=== PATIENT | female | born 1950 | race Caucasian/White ===

== ENCOUNTER 2017-07-20 15:33 | Inpatient (IN) ==
[2017-07-20] MEDS ORDERED: Ipratropium/Albuterol Neb 3 ML IH ONE (16:00)
[2017-07-20] MEDS ORDERED: Albuterol 2.5 MG/3 ML NEBULIZER IH ONE (16:00)
[2017-07-20] MEDS ORDERED: methylPREDNISolone 125 MG/2 ML VIAL IVP ONE (16:00)
--- NOTE | 2017-07-20 16:04 | Emergency Department Note ---
Disposition Clinical Impression: Influenza B, COPD exacerbation Pneumonia Qualifiers: Pneumonia type: due to unspecified organism Laterality: left Lung location: lower lobe of lung Qualified Code(s): J18.1 - Lobar pneumonia, unspecified organism Disposition: Admitted As Inpatient Condition: Good Referrals: Basilio Beckett DO [Primary Care Provider] - Forms: ED Satisfaction Letter Time of Disposition: 17:28 URI/Sore Throat HPI - General Chief Complaint: ED Upper Respiratory Infection Stated Complaint: cough, felicia Time Seen by Provider: 07/20/17 15:55 Source: patient Mode of arrival: ambulatory Limitations: no limitations Nursing Notes Reviewed: Yes Vital Signs Reviewed: Yes - History of Present Illness HPI Narrative: 66 Year Old white female with a 3 day history of cough, difficulty breathing, chest pain, aching all over. She admits to rhinorhea. No documented fever. She does have a history of COPD, she is not on home 02. Pt Subjective Complaint: cough, flu symptoms, rhinorrhea Onset (ago): day(s) (3) Duration: constant Severity: moderate Improves with: nothing Worsens with: nothing If sputum, description: other (none) Associated symptoms: Reports: denies other symptoms Treatments prior to arrival: none - Related Data Home Medications Medication Instructions Recorded Confirmed Albuterol Sulfate [Proair HFA] 2 puff IH Q4HR 02/16/15 07/20/17 Clopidogrel [Plavix] 75 mg PO DAILY 02/16/15 07/20/17 EPINEPHrine [Epipen JR 2-Hunter] 0.3 mg IJ ONCE 02/16/15 07/20/17 Levothyroxine Sodium [Synthroid] 100 mcg PO DAILY 02/16/15 07/20/17 Metformin HCl [Fortamet] 500 mg PO BID 02/16/15 07/20/17 carBAMazepine [Tegretal] 200 mg PO BID 02/16/15 07/20/17 Furosemide [Lasix] 20 mg PO DAILY PRN 03/06/16 07/20/17 Allergies Allergy/AdvReac Type Severity Reaction Status Date / Time Penicillins Allergy Anaphylaxis Verified 07/20/17 15:33 aspirin AdvReac Vomiting Verified 07/20/17 15:33 All systems ED: reviewed and negative except as stated. Constitutional: Reports: chills. Denies: fever Eyes: Denies: eye discharge ENT ED: Reports: congestion. Denies: ear pain, throat pain Cardiovascular: Reports: chest pain (sharp with coughing) Respiratory: Reports: cough, dyspnea, wheezes. Denies: sputum production Gastrointestinal: Denies: abdominal pain, nausea, vomiting, diarrhea Genitourinary: Denies: urgency, dysuria Musculoskeletal: Reports: myalgia Integumentary: Denies: rash Neurological: Reports: weakness URI PMH - Past Medical History Medical history: Reports: asthma, cancer, COPD, DVT, diabetes, GERD, seizures, thyroid disease Surgical history: Reports: breast surgery, cholecystectomy, hysterectomy, thyroidectomy Psychiatric history: Reports: no psych history - Social History Smoking Status: Former smoker Alcohol use: Reports: none Drug use: Reports: none Physical Exam - General Limitations: no limitations General appearance: alert, in no apparent distress - Head Head exam: atraumatic, normocephalic - Eye Eye exam: Present: PERRL, EOMI. Absent: scleral icterus, conjunctival injection - ENT ENT exam: normal oropharynx, mucous membranes moist, TM's normal bilaterally - Neck Neck exam: Present: normal inspection, full ROM, trachea midline. Absent: tenderness, lymphadenopathy - Respiratory Respiratory exam: Present: wheezes (Mild bilateral expiratory), other (Speaks in full sentences). Absent: respiratory distress, accessory muscle use, prolonged expiratory phase - Cardiovascular Cardiovascular exam: Present: regular rate, normal rhythm, normal heart sounds - Abdominal Exam Abdominal exam: Present: soft, Non-Tender, normal bowel sounds. Absent: organomegaly, mass - Extremities Exam Extremities exam: Present: normal inspection, full ROM, normal capillary refill - Neurological Exam Neurological exam: Present: alert, oriented X3, normal gait - Psychiatric Psychiatric exam: Present: normal affect, normal mood - Skin Skin exam: Present: warm, dry, intact, normal color Course Vital Signs Temperature 99 F 07/20/17 15:37 Pulse Rate 89 07/20/17 15:37 Respiratory Rate 18 07/20/17 15:37 Blood Pressure 108/55 07/20/17 15:37 O2 Sat by Pulse Oximetry 96 07/20/17 15:37 Temperature 99 F 07/20/17 15:37 Pulse Rate 89 07/20/17 15:37 Respiratory Rate 18 07/20/17 16:15 Blood Pressure 108/55 07/20/17 15:37 O2 Sat by Pulse Oximetry 96 07/20/17 16:15 Oxygen Delivery Oxygen Delivery Nasal Cannula Upper Respiratory Infection - MDM Narrative Medical decision making narrative: Differential includes but is not limited to influenza, pneumonia, URI, bronchitis, chf. Unlikely and radiographically she has pneumonia and left lower lobe. She is positive for influenza B. She has COPD. She has bronchospasm. She was given handheld nebulizers, Solu-Medrol. She will be given Tamiflu. She cultures drawn. He was given IV antibiotics in the emergency department. I discussed case with the hospitalist, Dr. Chavarria. He has accepted patient for admission. - Lab Data Lab results reviewed: Yes I reviewed the patient's lab results. Result diagrams: 07/20/17 16:06 07/20/17 16:06 Lab Results 07/20/17 07/20/17 07/20/17 Range/Units 16:06 16:06 16:06 WBC 7.2 (4.3-11.1) K/mcL RBC 3.46 L (3.82-4.97) M/mcL Hgb 11.0 L (11.5-15.4) g/dL Hct 32.8 L (35.3-44.9) % MCV 94.8 (83.0-100.0) fL MCH 31.8 (28.0-33.3) pg MCHC 33.5 (31.6-35.5) g/dL RDW 13.0 (11.5-14.5) % Plt Count 225 (140-400) K/mcL MPV 9.2 L (9.4-12.4) fL Seg Neutrophils % 72.0 % Band Neutrophils % 12.0 H (0-4) % Lymphocytes % 14.0 % Monocytes % 2.0 % Neutrophils # 6.1 (1.6-8.9) K/mcL Lymphocytes # 1.0 (0.6-4.6) K/mcL Monocytes # 0.1 (0.0-1.3) K/mcL Sodium 133 L (136-145) mEq/L Potassium 3.6 (3.5-4.5) mEq/L Chloride 99 (98-109) mEq/L Carbon Dioxide 24 (19-29) mEq/L BUN 17 (7-20) mg/dL Creatinine 0.72 (0.57-1.11) mg/dL Est GFR ( Amer) > 60 (> 60) Est GFR (Non-Af Amer) > 60 (> 60) BUN/Creatinine Ratio 24 (6-26) Glucose 101 H (70-99) mg/dL Calculated Osmolality 278 L (280-300) Calcium 9.1 (8.6-10.8) mg/dL Total Bilirubin 0.2 (0.2-1.2) mg/dL AST 23 (5-34) Units/L ALT 19 (0-55) Units/L Alkaline Phosphatase 71 (38-126) Units/L Troponin I 0.01 (0-0.03) ng/mL B-Natriuretic Peptide (0-100) pg/mL Serum Total Protein 6.7 (6.0-8.3) g/dL Albumin 3.1 L (3.5-5.0) g/dL Globulin 3.6 H (2.4-3.5) g/dL Albumin/Globulin Ratio 0.9 L (1.1-2.2) 07/20/17 Range/Units 16:06 WBC (4.3-11.1) K/mcL RBC (3.82-4.97) M/mcL Hgb (11.5-15.4) g/dL Hct (35.3-44.9) % MCV (83.0-100.0) fL MCH (28.0-33.3) pg MCHC (31.6-35.5) g/dL RDW (11.5-14.5) % Plt Count (140-400) K/mcL MPV (9.4-12.4) fL Seg Neutrophils % % Band Neutrophils % (0-4) % Lymphocytes % % Monocytes % % Neutrophils # (1.6-8.9) K/mcL Lymphocytes # (0.6-4.6) K/mcL Monocytes # (0.0-1.3) K/mcL Sodium (136-145) mEq/L Potassium (3.5-4.5) mEq/L Chloride (98-109) mEq/L Carbon Dioxide (19-29) mEq/L BUN (7-20) mg/dL Creatinine (0.57-1.11) mg/dL Est GFR ( Amer) (> 60) Est GFR (Non-Af Amer) (> 60) BUN/Creatinine Ratio (6-26) Glucose (70-99) mg/dL Calculated Osmolality (280-300) Calcium (8.6-10.8) mg/dL Total Bilirubin (0.2-1.2) mg/dL AST (5-34) Units/L ALT (0-55) Units/L Alkaline Phosphatase (38-126) Units/L Troponin I (0-0.03) ng/mL B-Natriuretic Peptide < 10 (0-100) pg/mL Serum Total Protein (6.0-8.3) g/dL Albumin (3.5-5.0) g/dL Globulin (2.4-3.5) g/dL Albumin/Globulin Ratio (1.1-2.2) - Radiology Data Radiology results reviewed: Yes I reviewed the patient's radiology results. Impressions Chest X-Ray 07/20/17 16:00 IMPRESSION: Left lower lobe infiltrate and small effusion. Follow-up to resolution is recommended. Mild right basilar atelectasis. D/ / Mayelin Wahl MD / Mayelin Wahl MD Interpreting Provider: Mayelin Wahl MD - EKG Data EKG attestation: Yes I reviewed and interpreted this EKG. EKG results narrative: Sinus rhythm, rate of 89, age-indeterminate lateral infarct, nonspecific ST-T changes. Rhythm strip shows sinus rhythm with a rate of 89, OR interval 137 ms , QRS 93 ms with no other ectopy as interpreted by me. No old EKG available for comparison.
[2017-07-20] MEDS ORDERED: Albuterol 2.5 MG/3 ML NEBULIZER ONE (16:09)
[2017-07-20 16:13] LABS: Hematocrit 32.8 % (35.3-44.9); Mean Corpuscular HGB Conc 33.5 g/dL (31.6-35.5); Mean Corpuscular Hemoglobin 31.8 pg (28.0-33.3); Mean Corpuscular Volume 94.8 fL (83.0-100.0); Mean Platelet Volume 9.2 fL (9.4-12.4); Platelet Count 225 K/mcL (140-400); Red Blood Count 3.46 M/mcL (3.82-4.97)
[2017-07-20 16:29] LABS: Alanine Aminotransferase 19 Units/L (0-55); Albumin 3.1 g/dL (3.5-5.0); Albumin/Globulin Ratio 0.9 (1.1-2.2); Alkaline Phosphatase 71 Units/L (38-126); Aspartate Amino Transferase 23 Units/L (5-34); BUN/Creatinine Ratio 24 (6-26); Bilirubin,Total 0.2 mg/dL (0.2-1.2); Blood Urea Nitrogen 17 mg/dL (7-20); Calcium 9.1 mg/dL (8.6-10.8); Carbon Dioxide 24 mEq/L (19-29); Chloride 99 mEq/L (98-109); Globulin 3.6 g/dL (2.4-3.5); Glucose 101 mg/dL (70-99); Osmolality,Calculated 278 (280-300); Potassium 3.6 mEq/L (3.5-4.5); Sodium 133 mEq/L (136-145); Total Protein 6.7 g/dL (6.0-8.3); eGFR For African Americans > 60 (> 60); eGFR For Non-African Americans > 60 (> 60)
[2017-07-20 16:32] LABS: Monocytes # 0.1 K/mcL (0.0-1.3); Neutrophils # 6.1 K/mcL (1.6-8.9)
[2017-07-20] MEDS ORDERED: Azithromycin 500 MG in D5% in Water 250 ML IVPB ONE (16:52)
[2017-07-20] MEDS ORDERED: Acetaminophen 325 MG TABLET PO PRN (18:36)
[2017-07-20] MEDS ORDERED: Furosemide 20 MG TABLET PO PRN (18:36)
[2017-07-20] MEDS ORDERED: Naloxone 0.4 MG/ML INJ IVP PRN (18:36)
[2017-07-20] MEDS ORDERED: D5% in Water 1,000 ML IVC PRN (21:00)
[2017-07-20] MEDS ORDERED: Dextrose Gel 15 GM PO PRN ×2 (21:00)
[2017-07-20] MEDS ORDERED: *HR* Dextrose 50 % in Water (Syg) 50 ML SYRINGE IVP PRN (21:00)
[2017-07-20] MEDS: MethylPREDNISolone 40 MG/ML VIAL IVP SCH (21:31)
[2017-07-20] MEDS: *HR* Metformin 500 MG TABLET PO SCH (21:32)
[2017-07-20] MEDS: carBAMazepine 200 MG TABLET PO SCH (21:33)
[2017-07-20] MEDS: Insulin LISPRO 300 UNITS/3 ML VIAL SQ SCH (21:34)
[2017-07-20] MEDS: Ipratropium/Albuterol Neb 3 ML IH SCH (21:53)
[2017-07-21] MEDS: Ondansetron ODT 4 MG TAB.RAPDIS SL PRN ×3 (01:34→14:45)
[2017-07-21] MEDS: MethylPREDNISolone 40 MG/ML VIAL IVP SCH ×2 (03:35→11:05)
[2017-07-21] MEDS: Ipratropium/Albuterol Neb 3 ML IH SCH ×2 (04:15→11:10)
[2017-07-21] MEDS: carBAMazepine 200 MG TABLET PO SCH ×2 (08:14→22:01)
[2017-07-21] MEDS: *HR* Metformin 500 MG TABLET PO SCH ×2 (08:14→17:19)
[2017-07-21] MEDS: Insulin LISPRO 300 UNITS/3 ML VIAL SQ SCH ×4 (08:15→22:02)
--- NOTE | 2017-07-21 12:17 | Electrocardiograph Report ---
[address] [place], [place] [address] Test Date: 2017-07-20 Pat Name: Janette Sinclair Department: [id number] Room: [facility] Gender: F Marketing Professional: Reg : 1950 Requested By: Jonathan Connor Order Number: [id number] Reading MD: Shawn Vazquez MD Measurements Intervals [place] Rate: 89 P: 66 RI: 137 QRS: 20 QRSD: 93 T: 53 QT: 333 QTc: 379 Interpretive Statements SINUS RHYTHM BASELINE ARTIFACT Electronically Signed On 07-21-2017 12:16:13 EST by Shawn Vazquez MD
--- NOTE | 2017-07-21 14:13 | Internal Med History&Physical ---
Date of Encounter: 07/21/17 Time of Encounter: 12:25 Assessment and Plan (1) Pneumonia Current visit: Yes Status: Acute She has been started on Rocephin with Zithromax through the emergency room. I will change from Zithromax to IV doxycycline and add lactobacillus. Qualifiers: Pneumonia type: due to unspecified organism Laterality: left Lung location: lower lobe of lung Qualified Code(s): J18.1 - Lobar pneumonia, unspecified organism (2) Influenza B Current visit: Yes Status: Acute She has been started on Tamiflu. (3) Anemia Current visit: Yes Status: Acute We will order anemia testing in a.m. Qualifiers: Anemia type: unspecified type Qualified Code(s): D64.9 - Anemia, unspecified Internal Medicine - H&P: HPI Chief complaint: Cough, weakness, vomiting Admitted From: Emergency Dept Plans for Post Hospital Care: Home History of present illness: Ms. Sinclair is a 66 year old female who came to emergency room stating she had onset of cough productive of green sputum, weakness, and episodes of vomiting onset July 17. She noticed bloody mucus in her stool over the past few hours. She was evaluated in emergency room and found to have influenza B and evidence of left lower lobe pneumonia. She was admitted to [facility] floor for ongoing care needs. Respiratory history is significant for having smoked from age [age] never up to 1 pack per day. She reports previous pneumonia approximately 2013. She states she has been diagnosed with COPD/emphysema and asthma but does not use home oxygen. She does have a home nebulizer machine. Past Med Surg Social Fam HX - Past Medical History Medical history: asthma, cancer, COPD, DVT, diabetes, GERD, seizures, thyroid disease Psychiatric history: no psych history - Past Surgical History Surgical History: breast surgery, cholecystectomy, hysterectomy, thyroidectomy - Social History Smoking Status: Former smoker Smokeless Tobacco Status: No Alcohol use: none Drug use: none Internal Medicine - H&P: Meds Albuterol Sulfate [Proair HFA] 2 puff IH Q4HR 02/16/15 [History] Clopidogrel [Plavix] 75 mg PO DAILY 02/16/15 [History] EPINEPHrine [Epipen JR 2-Hunter] 0.3 mg IJ ONCE 02/16/15 [History] Levothyroxine Sodium [Synthroid] 100 mcg PO DAILY 02/16/15 [History] Metformin HCl [Fortamet] 500 mg PO BID 02/16/15 [History] carBAMazepine [Tegretal] 200 mg PO BID 02/16/15 [History] Furosemide [Lasix] 20 mg PO DAILY PRN 03/06/16 [History] 3 Allergy/AdvReac Type Severity Reaction Status Date / Time Penicillins Allergy Anaphylaxis Verified 07/20/17 15:33 aspirin AdvReac Vomiting Verified 07/20/17 15:33 All Systems PM: A 10-system review of systems was performed and is negative for pertinent findings except as documented above in the HPI. Review of systems: General: She states her weight has been stable the past few months Cardiovascular: She denies hypertension but states she has ASHD with PTCA procedure without stent done in 1988. She denies heart failure DVT or pulmonary embolus Respiratory: As per history of present illness GI: She reports liver cysts and remote cholecystectomy. She denies disorders of her exocrine pancreas. She has had vomiting and bloody mucus in diarrhea as per history of present illness. : She denies hematuria dysuria or kidney stones Neurologic: She has history of seizures but reports no seizures for at least 5 years. She denies large distribution strokes. Endocrine: She was diagnosed with DM 2 at age 24. She had total thyroidectomy several years ago for thyroid nodules and now has hypothyroidism. She denies hyperlipidemia Hematology/oncology: She has history of skin cancer and anemia with iron deficiency. She denies internal malignancies Psychiatric: She denies anxiety or depression or other mental health issues Muscle skeletal: She has had scope procedures on her left wrist and both knees. She denies gout. - Constitutional Vitals: Temp Pulse Resp BP Pulse Ox 98.6 F 84 14 113/64 93 07/21/17 13:45 07/21/17 13:45 07/21/17 13:45 07/21/17 13:45 07/21/17 13:45 Exam: Gen.: She is a well developed well-nourished female resting comfortably in bed who appears in no acute distress at present time HEENT: Head is atraumatic and normocephalic. Eyes: EOMI. There is no sclerae icterus. Mouth: Mucosa is moist. Neck: Supple and nontender. There is no thyromegaly or adenopathy noted. Heart: Regular without murmurs gallops or ectopics Lungs: She has egophony in the left midlung field. No expiratory wheezing or inspiratory crackles are heard. Abdomen: Soft and nontender. No masses or guarding noted. Extremities: There is no cyanosis edema or clubbing noted. Dorsalis pedis and posterior tibial pulses are 1-2 over 2 bilaterally. Neurologic: Mental status: She is talkative and a good historian. Cranial nerves: Smile is symmetric. Forehead wrinkles bilaterally. Tongue protrudes midline. EOMI. Motor: There is no pronator drift. Cerebellar: Finger to nose is intact bilaterally. Skin: Warm and dry Internal Med - H&P Results - Labs CBC & Chem 7: 07/20/17 16:06 07/20/17 16:06
[2017-07-21] MEDS: Doxycycline 100 MG in 0.9 % Sodium Chloride Mini Bag 100 ML IVPB SCH (14:45)
[2017-07-21] MEDS: *HR* HYDROcodone/Acet 5/325 mg TABLET PO PRN (17:19)
[2017-07-21] MEDS: cefTRIAXone 1,000 MG in Water for inj. (sterile) 10 ML IVP SCH (17:19)
[2017-07-21] MEDS ORDERED: Azithromycin 500 MG in D5% in Water 250 ML IVPB SCH (18:00)
[2017-07-21] MEDS: Lactobacillus 1 EACH CAP.SPRINK PO SCH (22:00)
[2017-07-22] MEDS: Doxycycline 100 MG in 0.9 % Sodium Chloride Mini Bag 100 ML IVPB SCH ×2 (03:18→14:55)
[2017-07-22] MEDS: *HR* Enoxaparin 40 MG/0.4 ML SYRINGE SQ SCH (06:08)
[2017-07-22] MEDS: *HR* HYDROcodone/Acet 5/325 mg TABLET PO PRN (06:12)
[2017-07-22 07:09] LABS: Basophils % 0.1 %; Hematocrit 29.4 % (35.3-44.9); Hemoglobin 9.7 g/dL (11.5-15.4); Immature Granulocytes % 2.8 % (0-4); Lymphocytes # 0.9 K/mcL (0.6-4.6); Lymphocytes % 12.6 %; Mean Corpuscular Hemoglobin 31.6 pg (28.0-33.3); Mean Corpuscular Volume 95.8 fL (83.0-100.0); Mean Platelet Volume 9.5 fL (9.4-12.4); Monocytes # 0.6 K/mcL (0.0-1.3); Monocytes % 7.4 %; Neutrophils # 5.8 K/mcL (1.6-8.9); Platelet Count 230 K/mcL (140-400); Red Blood Count 3.07 M/mcL (3.82-4.97); Red Cell Distribution Width 13.1 % (11.5-14.5); Segmented Neutrophils % 77.1 %
[2017-07-22] MEDS: Insulin LISPRO 300 UNITS/3 ML VIAL SQ SCH ×4 (08:24→20:24)
[2017-07-22] MEDS: Lactobacillus 1 EACH CAP.SPRINK PO SCH ×2 (08:29→20:22)
[2017-07-22] MEDS: carBAMazepine 200 MG TABLET PO SCH ×2 (08:30→20:23)
[2017-07-22] MEDS: *HR* Metformin 500 MG TABLET PO SCH ×2 (08:30→20:07)
--- NOTE | 2017-07-22 10:44 | Internal Med Progress Note ---
Date of Encounter: 07/22/17 Time of Encounter: 10:25 - Assessment and plan (1) Pneumonia Current Visit: Yes Status: Acute Assessment and plan: July 22. Continue Rocephin and doxycycline with lactobacillus. Anticipate discharge home tomorrow. Qualifiers: Pneumonia type: due to unspecified organism Laterality: left Lung location: lower lobe of lung Qualified Code(s): J18.1 - Lobar pneumonia, unspecified organism (2) Influenza B Current Visit: Yes Status: Acute Assessment and plan: July 22. Continue Tamiflu. (3) Anemia Current Visit: Yes Status: Acute Assessment and plan: July 22. Anemia testing is pending. Qualifiers: Anemia type: unspecified type Qualified Code(s): D64.9 - Anemia, unspecified (4) Vaginal bleeding Current Visit: Yes Status: Acute Assessment and plan: July 22. She has had remote hysterectomy. Will treat for vaginitis. Recheck labs in a.m. - Subjective Interval history: July 22. She has no new complaints except she has had bloody vaginal discharge since being started on antibiotics. - Constitutional Vitals: Temp Pulse Resp BP Pulse Ox 97.5 F L 65 18 99/53 93 07/22/17 06:56 07/22/17 06:56 07/22/17 06:56 07/22/17 06:56 07/22/17 06:56 Exam: She is resting comfortably in bed and appears in no acute distress. Her affect is bright and cheerful. I reviewed her medications and lab results. Internal Medicine: Result - Labs CBC & Chem 7: 07/22/17 06:56 07/20/17 16:06 Labs: Short CBC 07/22/17 Range/Units 06:56 WBC 7.5 (4.3-11.1) K/mcL Hgb 9.7 L (11.5-15.4) g/dL Hct 29.4 L (35.3-44.9) % Plt Count 230 (140-400) K/mcL Neutrophils # 5.8 (1.6-8.9) K/mcL Consult Discharge Plan - Plan Referrals: Basilio Beckett, [Primary Care Provider] - 1 week
[2017-07-22 13:43] LABS: % Iron Saturation 7 % (15-50); Ferritin 67 ng/ml (10-120); Iron 24 mcg/dL (50-170); Transferrin 261 mg/dL (203-362)
[2017-07-22 14:57] LABS: Folate 5.1 ng/mL (3.0-16.0)
[2017-07-22] MEDS: Fluconazole 100 MG TABLET PO SCH (14:57)
[2017-07-22] MEDS: cefTRIAXone 1,000 MG in Water for inj. (sterile) 10 ML IVP SCH (20:06)
[2017-07-23] MEDS: Doxycycline 100 MG in 0.9 % Sodium Chloride Mini Bag 100 ML IVPB SCH (04:05)
[2017-07-23] MEDS: *HR* Enoxaparin 40 MG/0.4 ML SYRINGE SQ SCH (06:26)
[2017-07-23 06:38] VITALS: BP 110/66
[2017-07-23 07:33] LABS: Basophils % 0.4 %; Eosinophils % 0.4 %; Hematocrit 30.3 % (35.3-44.9); Immature Granulocytes % 5.3 % (0-4); Lymphocytes # 1.6 K/mcL (0.6-4.6); Mean Corpuscular Hemoglobin 31.5 pg (28.0-33.3); Mean Corpuscular Volume 95.6 fL (83.0-100.0); Mean Platelet Volume 9.7 fL (9.4-12.4); Monocytes # 0.4 K/mcL (0.0-1.3); Monocytes % 9.5 %; Neutrophils # 2.2 K/mcL (1.6-8.9); Platelet Count 222 K/mcL (140-400); Red Blood Count 3.17 M/mcL (3.82-4.97); Red Cell Distribution Width 13.2 % (11.5-14.5); Segmented Neutrophils % 49.4 %
[2017-07-23 08:21] LABS: Platelet Estimate Normal (Normal)
[2017-07-23] MEDS: *HR* Metformin 500 MG TABLET PO SCH (08:54)
[2017-07-23] MEDS: Insulin LISPRO 300 UNITS/3 ML VIAL SQ SCH (08:54)
[2017-07-23] MEDS: Lactobacillus 1 EACH CAP.SPRINK PO SCH (08:54)
[2017-07-23] MEDS: Fluconazole 100 MG TABLET PO SCH (08:55)
[2017-07-23] MEDS: carBAMazepine 200 MG TABLET PO SCH (08:55)
--- NOTE | 2017-07-23 09:47 | Discharge Summary ---
Date of Encounter: 07/23/17 Time of Encounter: 09:35 - Discharge Diagnosis (1) Pneumonia Priority: Primary Status: Acute Qualifiers: Pneumonia type: due to unspecified organism Laterality: left Lung location: lower lobe of lung Qualified Code(s): J18.1 - Lobar pneumonia, unspecified organism (2) Influenza B Priority: Secondary Status: Acute (3) Anemia Priority: Secondary Status: Acute Qualifiers: Anemia type: iron deficiency Iron deficiency anemia type: unspecified iron deficiency Qualified Code(s): D50.9 - Iron deficiency anemia, unspecified (4) Vaginal bleeding Priority: Secondary Status: Acute - Discharge Medications Prescriptions: Cefuroxime PO [Ceftin] 500 mg PO Q12HR #4 tablet Ascorbic Acid [Vitamin C] 500 mg PO DAILY #30 tablet Doxycycline 100 mg PO BID #4 capsule Ferrous Sulfate 325 mg PO DAILY #30 tablet Fluconazole [Diflucan] 150 mg PO DAILY #2 tablet Lactobacillus [Culturelle] 1 each PO BID #4 cap.sprink Oseltamivir [Tamiflu] 75 mg PO BID #4 capsule Home Medications: Albuterol Sulfate [Albuterol Inhaler] 2 puff IH Q4HR 02/16/15 [History] Clopidogrel [Plavix] 75 mg PO DAILY 02/16/15 [History] EPINEPHrine [Epipen Jr 2-Hunter] 0.3 mg IJ ONCE 02/16/15 [History] Levothyroxine Sodium [Synthroid] 100 mcg PO DAILY 02/16/15 [History] Metformin HCl [Fortamet] 500 mg PO BID 02/16/15 [History] carBAMazepine [Tegretol] 200 mg PO BID 02/16/15 [History] Furosemide [Lasix] 20 mg PO DAILY PRN 03/06/16 [History] Ascorbic Acid [Vitamin C] 500 mg PO DAILY #30 tablet 07/23/17 [Rx] Cefuroxime PO [Ceftin] 500 mg PO Q12HR #4 tablet 07/23/17 [Rx] Doxycycline 100 mg PO BID #4 capsule 07/23/17 [Rx] Ferrous Sulfate 325 mg PO DAILY #30 tablet 07/23/17 [Rx] Fluconazole [Diflucan] 150 mg PO DAILY #2 tablet 07/23/17 [Rx] Lactobacillus [Culturelle] 1 each PO BID #4 cap.sprink 07/23/17 [Rx] Oseltamivir [Tamiflu] 75 mg PO BID #4 capsule 07/23/17 [Rx] Allergies/Adverse Reactions: 3 Allergy/AdvReac Type Severity Reaction Status Date / Time Penicillins Allergy Anaphylaxis Verified 07/20/17 15:33 aspirin AdvReac Vomiting Verified 07/20/17 15:33 Date of admission: 07/21/17 14:24 Primary care physician: Basilio Beckett DO - Patient Status Disposition: Home, Self-Care Condition: Good Functional capacity at discharge: independent ambulation Overall status at discharge: patient is progressing back to baseline - Discharge Instructions Follow Up With: Basilio Beckett DO [Primary Care Provider] - 1 week - Diet and Activity Activity: resume usual activities as tolerated Diet: advance to your usual diet Hospital course: Ms. Sinclair is a 66 year old female who came to emergency room stating she had onset of cough productive of green sputum, weakness, and episodes of vomiting onset July 17. She noticed bloody mucus in her stool over the past few hours. She was evaluated in emergency room and found to have influenza B and evidence of left lower lobe pneumonia. She was admitted to [facility] floor for ongoing care needs. Initial orders were written by emergency room physician. I saw her on July 21 and performed a history and physical. She was started on Rocephin and Zithromax through emergency room. I change Zithromax to doxycycline and gave lactobacillus. Tamiflu was given for influenza. She had good clinical response and remained afebrile after the first hospital day. WBC remained normal and there was resolution of left shift on differential. She will continue with antibiotic and probiotic for 2 additional days after discharge. Anemia testing showed iron 24, transferrin saturation 7%, transferrin 261, ferritin 67, B12 1059, and folate 5.1. She will be given ferrous sulfate with vitamin C at discharge. She complained of some vaginal bleeding. She was given Diflucan and this improved by the time of discharge. She will continue Diflucan for 2 additional days after discharge. On July 23 she felt improved and stable for discharge home. She will follow with her PCP Dr. Beckett within 1 week. - Time Spent with Patient Total time spent providing and/or coordinating discharge services: - Constitutional Vitals: Temp Pulse Resp BP Pulse Ox 98.2 F 73 16 110/66 91 07/23/17 06:33 07/23/17 06:33 07/23/17 06:33 07/23/17 06:33 07/23/17 06:33
[2017-07-23] MEDS: Ondansetron ODT 4 MG TAB.RAPDIS SL PRN (10:47)
== END 2017-07-23 13:35 | disposition home or self-care (01) | DRG 195 ==
LOC: INPPIK 15:33 → EMEROOPIK 15:33 → INPPIK 18:23
PROVIDERS: ADMIT Internal Medicine; ATTEND Internal Medicine